=== PATIENT | female | born 1995 | race Caucasian/White ===

== ENCOUNTER 2017-11-05 02:25 | Emergency (ER) | payer BC, OTHER ==
[2017-11-05 02:25] VITALS: BMI 40.2
[2017-11-05] MEDS ORDERED: Bacitracin 500 Units/gm Oint Foilpak UD TOP STA (02:45)
[2017-11-05] MEDS ORDERED: Tetanus/Diphtheria Toxoids 0.5 ml Syringe IM ONE ×2 (02:45→02:55)
[2017-11-05 02:55] LABS: BASO # 0.1 K/uL (0.0-0.2); BASO % 0.5 % (0.0-2.0); EOS # 0.1 K/uL (0.0-0.7); EOS % 0.4 % (0.0-4.0); HEMOGLOBIN 12.6 g/dL (11.0-16.0); LYMPH # 4.5 K/uL (1.0-4.3); LYMPH % 26.9 % (20.0-40.0); MEAN CELL VOLUME 80.9 fL (81.0-99.0); MEAN CORPUSCULAR HGB CONC 33.4 g/dL (33.0-37.0); MEAN PLATELET VOLUME 9.8 fL (7.2-11.7); MONO # 1.1 K/uL (0.0-0.8); MONO % 6.6 % (0.0-10.0); NEUT # 11.1 K/uL (1.8-7.0); NEUT % 65.6 % (50.0-75.0); RBC 4.68 Mil/uL (3.80-5.20); RED CELL DISTRIBUTION WIDTH 14.5 % (11.5-14.5); WHITE BLOOD COUNT 16.9 K/uL (4.8-10.8)
[2017-11-05] MEDS ORDERED: Bacitracin 500 Units/gm Oint Foilpak UD ONE ×2 (02:55→07:10)
[2017-11-05] MEDS ORDERED: Sodium Chloride 0.9% 1,000 ML ONE (02:55)
[2017-11-05 02:57] LABS: HCG,QUALITATIVE URINE NEGATIVE (NEGATIVE)
[2017-11-05 02:58] LABS: URINE BILIRUBIN NEGATIVE (NEGATIVE); URINE BLOOD NEGATIVE (NEGATIVE); URINE CLARITY Clear (Clear); URINE COLOR Straw (YELLOW); URINE GLUCOSE (UA) NORMAL (Normal); URINE LEUKOCYTE ESTERASE NEG Leu/uL (Negative); URINE PROTEIN NEGATIVE (NEGATIVE); URINE UROBILINOGEN NORMAL mg/dL (0.2-1.0)
[2017-11-05 03:15] LABS: BARBITURATES, UR NEGATIVE (NEGATIVE); BENZODIAZEPINES, UR NEGATIVE (NEGATIVE); OPIATES, UR NEGATIVE (NEGATIVE); PHENCYCLIDINE, UR NEGATIVE (NEGATIVE)
--- NOTE | 2017-11-05 04:09 | C.PDOC ---
History Of Present Illness 22 year old female is brought to the ED by family member for evaluation. History is obtained from patient's cousin due to patient state. As per cousin patient was drinking today she started vomiting, family decided to take patient home. While going home patient fell face front. Further history of patient is unable to be obtained due to patient's state. Chief Complaint (Nursing): Substance Abuse History Per: Family History/Exam Limitations: intoxication Onset/Duration Of Symptoms: Hrs Current Symptoms Are (Timing): Still Present Suicide/Self Injury Attempted (Context): None Modifying Factor(s): Alcohol Associated Symptoms: denies: Depression, Suicidal Thoughts, Suicidal Plan Involuntary Hold By: None Recent travel outside of the [place]: No Additional History Per: Family Past Medical History Reviewed: Historical Data, Nursing Documentation, Vital Signs Vital Signs: Last Vital Signs Temp 97.5 F L 11/05/17 02:29 Pulse 111 H 11/05/17 02:29 Resp 22 11/05/17 02:29 BP 124/78 11/05/17 02:29 Pulse Ox 95 11/05/17 06:39 - Medical History PMH: Sexually Transmitted Disease (HPV) Surgical History: No Surg Hx Family History: States: Unknown Family Hx - Social History Hx Alcohol Use: Yes Hx Substance Use: No - Immunization History Hx Tetanus Toxoid Vaccination: No Hx Influenza Vaccination: No Hx Pneumococcal Vaccination: No Review Of Systems Review Of Systems: ROS cannot be obtained secondary to pt's inabilty to answer questions. Physical Exam - Physical Exam Appears: Non-toxic, Other (intoxicated, arousable but not answering questions) Skin: Normal Color, Warm, Dry Head: Atraumatic, Normacephalic, Swelling (forehead), Abrasion (multiple to face ) Eye(s): bilateral: Normal Inspection Oral Mucosa: Moist Neck: Normal ROM, No Midline Cervical Tenderness, Supple Chest: Symmetrical Cardiovascular: Rhythm Regular Respiratory: Normal Breath Sounds, No Rales, No Rhonchi, No Wheezing Gastrointestinal/Abdominal: Soft, No Tenderness, No Guarding, No Rebound Extremity: Normal ROM Neurological/Psych: Other (unresponsive due to alcohol intoxication, arousable ) Gait: Unable To Assess ED Course And Treatment - Laboratory Results Result Diagrams: 11/05/17 02:52 11/05/17 02:52 O2 Sat by Pulse Oximetry: 95 (ON RA) Pulse Ox Interpretation: Normal - CT Scan/US CT head Other Rad Studies (CT/US): Read By Radiologist, Radiology Report Reviewed CT/US Interpretation: Name: TAMMY GALEANA Age: 22Years F Date: 11/05/2017. Requesting Physician: Mouna Hughes PA-C : 1995. [facility] Procedure Ordered As Accession Number of Images. CT HEAD WO CT HEAD W O CONTRAST [id number] 132. Provided Clinical History: head injury, ETOH. CONFIDENTIALITY STATEMENT. This report is intended only for the use of the referring physician, and only in accordance with law, If you received this in error, call [phone]. Page 1 of 1. EXAM: CT Head Without Intravenous Contrast. CLINICAL HISTORY: 22 years old, female; Pain; Headache and other: Frontal swelling; Additional info: Head injury, ETOH. TECHNIQUE: Axial computed tomography images of the head/brain without intravenous contrast. All CT scans at. this facility use at least one of these dose optimization techniques: automated exposure control; mA. and/or kV adjustment per patient size (includes targeted exams where dose is matched to clinical. indication); or iterative reconstruction. 132 images are submitted. COMPARISON: No relevant prior studies available. FINDINGS: Brain: Unremarkable. No hemorrhage. No significant white matter disease. No edema. Ventricles: Unremarkable. No ventriculomegaly. Bones/joints: Unremarkable. No acute fracture. Soft tissues: Right frontal scalp soft tissue swelling and hematoma. Sinuses: Unremarkable. No acute sinusitis. Mastoid air cells: Unremarkable. No mastoid effusion. Orbits: Prosthetic right globe. The left globe and lens are intact. Nasal cavity/septum: Left nasal body piercing ring. IMPRESSION: 1. Right frontal scalp soft tissue swelling and hematoma. 2. No evidence of an acute intracranial hemorrhage, midline shift or mass effect is identified. Thank you for allowing us to participate in the care of your patient. Dictated and Authenticated by: Nora Parks MD. 11/05/2017 6:37 AM Eastern Time ( [place] & [place]) Progress Note: Plan: - CT head. - Labs. - Bacitracin. - Tetanus immunization. - Zofran 8 mg IVP. - UA. On re-evaluation patient feels better and stable, alert and awake, tolerates po and has stady gate. Family at bedside and she may be d/c home. Disposition - Disposition Disposition: HOME/ ROUTINE Disposition Time: 06:55 Condition: IMPROVED Additional Instructions: Follow up with PMD within 1-2 days. Return to ED if feel worse. Instructions: Alcohol Poisoning, Minor Head Injury Forms: [facility] (Hebrew) - Clinical Impression Clinical Impression: Alcohol intoxication, Head injury - PA / DIRECTOR OF MATH / Resident Statement MD/DO has reviewed & agrees with the documentation as recorded. - Scribe Statement The provider has reviewed the documentation as recorded by the Scribe Brandon Carranza All medical record entries made by the Scribмарина were at my direction and personally dictated by me. I have reviewed the chart and agree that the record accurately reflects my personal performance of the history, physical exam, medical decision making, and the department course for this patient. I have also personally directed, reviewed, and agree with the discharge instructions and disposition.
[2017-11-05 04:20] LABS: ALB/GLOB RATIO 1.2 (1.0-2.1); ALBUMIN 4.4 g/dL (3.5-5.0); ALT/SGPT 27 U/L (9-52); AST/SGOT 33 U/L (14-36); BLOOD UREA NITROGEN 14 mg/dL (7-17); GFR AFRICAN-AMERICAN > 60; GFR NON-AFRICAN AMERICAN > 60
[2017-11-05] MEDS ORDERED: Potassium Chloride 20 mEq/15 ml LIQ UD PO STA (04:23)
[2017-11-05] MEDS ORDERED: Sodium Chloride 0.9% 1,000 ML IV STA (04:23)
[2017-11-05] MEDS ORDERED: Potassium Chloride 20 mEq/15 ml LIQ UD ONE ×2 (05:27→05:30)
[2017-11-05 07:48] VITALS: BP 100/67; PULSE 88; RESP 18; TEMP 98.6; O2SAT 98
--- NOTE | 2017-11-05 10:47 | CT ---
PROCEDURE: CT HEAD WITHOUT CONTRAST. HISTORY: Head injury, ETOH COMPARISON: None available. TECHNIQUE: Axial computed tomography images were obtained through the head/brain without intravenous contrast. Radiation dose: Total exam DLP = 971.88 MGy-cm. This CT exam was performed using one or more of the following dose reduction techniques: Automated exposure control, adjustment of the mA and/or kV according to patient size, and/or use of iterative reconstruction technique. FINDINGS: HEMORRHAGE: No intracranial hemorrhage. BRAIN: [place]-white matter differentiation is preserved. There is no mass, mass effect or abnormal extra-axial fluid collection. There is no territorial infarction. VENTRICLES: The ventricles are normal in size, shape and configuration. CALVARIUM: There is no calvarial fracture. There is a small right frontal scalp hematoma. PARANASAL SINUSES: Unremarkable as visualized. No significant inflammatory changes. MASTOID AIR CELLS: Unremarkable as visualized. No inflammatory changes. OTHER FINDINGS: None. IMPRESSION: No acute intracranial abnormality. Small right frontal scalp hematoma. A preliminary report was provided by [employer].
== END 2017-11-05 07:49 | disposition home or self-care (01) ==
LOC: C.ER 02:25
DX: S09.90XA Unspecified injury of head, initial encounter (principal); W01.0XXA Fall on same level from slipping, tripping and stumbling without subsequent striking against object, initial encounter; Y92.89 Other specified places as the place of occurrence of the external cause; F10.129 Alcohol abuse with intoxication, unspecified; Y90.8 Blood alcohol level of 240 mg/100 ml or more; Z23 Encounter for immunization
CPT/HCPCS: 70450; 80053; 81001; 82948; 84703; 85025; 90471; 90714; 96361; 96374; 99285; G0480; J2405; J7030